=== PATIENT | female | born 1995 | race Caucasian/White ===

== ENCOUNTER 2023-10-31 10:12 | Emergency (ER) | payer MEDICAID, OTHER ==
[~2023-10-31] VITALS: Ht 167.6 cm; Wt 10.9 kg
[~2023-10-31 10:12] MED LIST: BCP PO; LEVO150T8 PO
[2023-10-31 10:23] VITALS: O2SAT 99
[2023-10-31] MEDS ORDERED: IBUP-1955 PO (11:39)
== END 2023-10-31 11:54 | disposition home or self-care (01) ==
LOC: ER 10:12
DX: S93.491A Sprain of other ligament of right ankle, initial encounter (principal); E03.9 Hypothyroidism, unspecified; Z98.890 Other specified postprocedural states; Z79.899 Other long term (current) drug therapy; X50.1XXA Overexertion from prolonged static or awkward postures, initial encounter; Y93.89 Activity, other specified; Y92.89 Other specified places as the place of occurrence of the external cause; Y99.8 Other external cause status
CPT/HCPCS: 73610; A4606; A4663